=== PATIENT | female | born 1965 | race Hispanic/Latino ===

== ENCOUNTER → 2023-03-13 | Outpatient (CLI) | payer OTHER ==
[~2023-03-13] MED LIST: IOHEXOL 350 MG/ML 100ML INFUS..BTL IV ONE
== END | disposition home or self-care (01) ==
LOC: RAH 08:51
PROVIDERS: ATTEND Internal Medicine Gastroenterology
DX: C18.9 Malignant neoplasm of colon, unspecified (principal); N32.89 Other specified disorders of bladder; M47.815 Spondylosis without myelopathy or radiculopathy, thoracolumbar region
CPT/HCPCS: 71270; 74178; Q9967

== ENCOUNTER → 2023-03-13 | Outpatient (CLI) | payer OTHER | END | disposition home or self-care (01) | LOC: OIH 10:00 → EDUNIT# 11:30 | PROVIDERS: ATTEND Internal Medicine | DX: Z13.6 Encounter for screening for cardiovascular disorders (principal) | CPT/HCPCS: 75571 ==

== ENCOUNTER 2023-04-30 05:53 | Day surgery (SDC) | payer SELFPAY ==
[2023-04-29 12:47] LABS: BASOPHILS # (AUTO) 0.02 K/uL (0.00-0.20); BASOPHILS % (AUTO) 0.2 % (0.0-5.0); EOSINOPHILS # (AUTO) 0.12 K/uL (0.00-0.70); EOSINOPHILS % (AUTO) 1.5 % (0.0-8.0); HEMATOCRIT 36.8 % (36-48); IMMATURE GRANULOCYTE ABSOLUTE 0.02 K/uL (0-1); LYMPHOCYTES # (AUTO) 2.5 K/uL (1.0-4.8); LYMPHOCYTES % (AUTO) 30.1 % (21.0-51.0); MEAN CORPUSCULAR HEMOGLOBIN 29.4 pg (27.0-33.0); MEAN CORPUSCULAR HGB CONC 32.1 g/dL (32.0-36.0); MEAN CORPUSCULAR VOLUME 91.5 fL (79-99); MONOCYTES # (AUTO) 0.4 K/uL (0.1-1.0); MONOCYTES % (AUTO) 5.4 % (3.0-13.0); NEUTROPHILS # (AUTO) 5.1 K/uL (1.8-7.7); NEUTROPHILS % (AUTO) 62.6 % (40.0-77.0); PLATELET COUNT (AUTO) 235 K/uL (130-400); RED BLOOD CELL COUNT(AUTO) 4.02 MIL/uL (4.00-5.50); RED CELL DISTRIBUTION WIDTH 13.2 % (11.0-15.5); WHITE BLOOD COUNT (AUTO) 8.2 K/uL (4.8-10.8)
[2023-04-29 12:58] VITALS: BP 140/68; PULSE 54; RESP 16
[2023-04-29 12:59] LABS: INR 0.94 (0.85-1.15); PROTHROMBIN TIME 10.9 SEC (9.6-11.6)
[2023-04-29 13:01] LABS: PARTIAL THROMBOPLASTIN TIME 27.5 SEC (26.3-35.5)
[2023-04-29 13:11] LABS: ALBUMIN 3.5 g/dL (3.5-5.0); BILIRUBIN,TOTAL 0.4 mg/dL (0.2-1.0); CREATININE 0.7 mg/dL (0.5-1.5); POTASSIUM 4.4 mmol/L (3.5-5.1); TOTAL PROTEIN, SERUM 7.2 g/dL (6.0-8.3)
[2023-04-30] VITALS (18 sets, daily range): BP systolic 110–154; BP diastolic 52–73; PULSE 53–71; RESP 10–19
[~2023-04-30] VITALS: Ht 154.9 cm; Wt 66.8 kg
[2023-04-30] MEDS ORDERED: LACTATED RINGERS 1000ML 1,000 ML IV ONE (07:04)
[2023-04-30] MEDS ORDERED: INDOCYANINE GREEN 25 MG VIAL IJ ONE (07:37)
[2023-04-30] MEDS ORDERED: LIDOCAINE 1%-EPI 1:100,000 20 ML VIAL IJ ONE (07:43)
[2023-04-30] MEDS ORDERED: BUPIVACAINE/PF 0.5% 30ML VIAL ONE (07:43)
[2023-04-30] MEDS ORDERED: ESMOLOL HCL 10 MG/ML 10 ML VIAL ONE (08:52)
[2023-04-30] MEDS: MEROPENEM 1 GM VIAL ONE ×2 (08:56→12:00)
[2023-04-30] MEDS ORDERED: ROCURONIUM 10MG/1ML SYR 10 MG/ML ML ONE (11:31)
[2023-04-30] MEDS ORDERED: LIDOCAINE PF 100MG/5ML (2%) SYRINGE 5ML ONE (11:31)
[2023-04-30] MEDS ORDERED: MIDAZOLAM HCL 1 MG/ML 2ML VIAL ONE (11:31)
[2023-04-30] MEDS ORDERED: PROPOFOL 10 MG/ML 20ML VIAL IV ONE (11:31)
[2023-04-30] MEDS ORDERED: FENTANYL CITRATE PF 50 MCG/1 ML 2ML VIAL ONE ×2 (11:32→13:13)
[2023-04-30] MEDS ORDERED: DEXAMETHASONE SOD PHOSPHATE 4 MG/ML 1ML VIAL ONE (12:14)
[2023-04-30] MEDS ORDERED: ONDANSETRON 4MG INJ ONE (12:14)
[2023-04-30] MEDS ORDERED: SUGAMMADEX SODIUM 200 MG/2 ML VIAL IV ONE (12:34)
== END 2023-04-30 14:35 | disposition home or self-care (01) ==
LOC: DAH 05:53
PROVIDERS: ATTEND Surgery
DX: C20 Malignant neoplasm of rectum (principal); I10 Essential (primary) hypertension; J45.909 Unspecified asthma, uncomplicated; K21.9 Gastro-esophageal reflux disease without esophagitis; Z79.899 Other long term (current) drug therapy; Z98.890 Other specified postprocedural states
CPT/HCPCS: 80053; 84703; 85025; 85610; 85730; 36415; 93005 ×2; 45171; 84484; 88305; J1100; A6260; A4663; J7030; J7120 ×2; J3010 ×2; J3490 ×3; J2001; J2250; J2704; J2405; J2185; A4930; A4215; A4223; A4222; A4221

== ENCOUNTER → 2023-08-25 | Outpatient (CLI) | payer OTHER, SELFPAY ==
[~2023-08-25] MED LIST changes: +GADOTERATE MEGLUMINE 10 MMOL/20 ML VIAL IV ONE; -IOHEXOL 350 MG/ML 100ML INFUS..BTL IV ONE
[2023-08-25 10:01] LABS: CREATININE 0.8 mg/dL (0.5-1.5)
== END | disposition home or self-care (01) ==
LOC: RAH 08:49
PROVIDERS: ATTEND Surgery
DX: C20 Malignant neoplasm of rectum (principal); R16.0 Hepatomegaly, not elsewhere classified
CPT/HCPCS: 74183; 84520; 82565; 36415; A9575

== ENCOUNTER 2023-12-16 06:33 | Day surgery (SDC) | payer SELFPAY ==
[~2023-12-16] VITALS: Ht 154.9 cm; Wt 65.3 kg
[2023-12-16 06:45] VITALS: BP 143/70; PULSE 66; RESP 16
[2023-12-16 07:15] VITALS: BP 114/78; PULSE 64; RESP 11
[2023-12-16] MEDS ORDERED: PROPOFOL 10 MG/ML 20ML VIAL IV ONE (07:42)
[2023-12-16] MEDS: 0.9%NACL 1000ML 1,000 ML IV ONE (08:07)
== END 2023-12-16 08:46 ==
LOC: DAH 06:33
PROVIDERS: ATTEND Surgery
DX: Z08 Encounter for follow-up examination after completed treatment for malignant neoplasm (principal); K64.9 Unspecified hemorrhoids; I10 Essential (primary) hypertension; J45.909 Unspecified asthma, uncomplicated; L29.0 Pruritus ani; R16.0 Hepatomegaly, not elsewhere classified; Z82.5 Family history of asthma and other chronic lower respiratory diseases; Z85.048 Personal history of other malignant neoplasm of rectum, rectosigmoid junction, and anus; Z79.899 Other long term (current) drug therapy
CPT/HCPCS: 81025; 45330; J7030; J2704; A4620; A4215 ×2; A4223; A7002; A4222; A4221; A4663; A4606; J3490